=== PATIENT | female | born 1950 | race Caucasian/White ===

== ENCOUNTER 2024-01-11 06:24 | Day surgery (SDC) | payer MEDICARE, SELFPAY ==
[2024-01-11 06:46] VITALS: BP 120/63; PULSE 71; RESP 16; TEMP 36.7; O2SAT 97
[2024-01-11] MEDS: Lidocaine 1% Pres-Free W/EPI 1/200,000 10 ML VIAL (07:25)
[2024-01-11] MEDS: Erythromycin Ophth Oint 1 GM TUBE OU (07:30)
[2024-01-11] MEDS: Povidone-Iodine Ophth 30 ML BTL (07:32)
--- NOTE | 2024-01-11 07:38 | SKI_PTH ---
PATIENT: Stephanie Nunez LOC: [facility] U#:[id number] AGE/SX: 73/F ROOM: RE01/11/[address]: Noel De Oliveira : 1950 BED: DIS: 01/11/2024 SPEC #: [id number] RECD: 01/11/24 11:56 STATUS: ZBIGNIEW REVivian #: [id number] STEPAN: 01/11/24 07:[address]: Noel De Oliveira DEPT: Surgical Specimen RECD BY: Medina Child ENTERED: 01/11/24 11:56 SP TYPE: KURTIS COLIN DR: Keyur Onofre Tissues: 1 - SKIN BIOPSY(SHAVE/PUNCH) Procedures: SKIN LEVEL 4 Comments: [id number]
[2024-01-11 07:45] VITALS: BP 130/71; PULSE 57; RESP 18; TEMP 36; O2SAT 95
--- NOTE | 2024-01-11 07:45 | W.PM.OP ---
Date of service: 01/11/24 Time of Service: 07:45 Operative Note Operative Note DATE OF PROCEDURE: 01/11/24 PRE-OP DIAGNOSIS: Recurrent x3 right upper eyelid nodule POST-OP DIAGNOSIS: same PROCEDURE: Excision of recurrent right upper eyelid nodule SURGEON: Noel De Oliveira ANESTHESIA TYPE: Local By Surgeon Refer to Anesthesia Record ESTIMATED BLOOD LOSS: 0 PATHOLOGY: other Patient was transported to: same day Patient's condition: stable Indications: Recurrent x 3 right upper eyelid nodule Findings: 2 mm x 3 mm solid nodule at the lid margin posterior to the lash line Procedure Description: The preoperative area, the correct surgical eye was confirmed and marked with a surgical marker. 2 drops of tetracaine were applied to the right thigh. 1 cc of lidocaine 1% with epinephrine was injected in the temporal right upper lid surrounding the lesion at the lid margin. This was allowed to take effect for 10 minutes and the patient was brought to the operating room where the upper eyelid was prepped with ophthalmic Betadine. A chalazion clamp was applied to the right upper lid and a #15 blade was used to delineate the margins of the lesion with a 1 mm margin. The lesion measured approximately 2 mm in vertical dimension, 3 mm in horizontal dimension, located on the lid margin, posterior to the lash line. Erica scissors were then used to remove the lesion in its entirety. Pressure was applied until the very minimal bleeding stopped. Erythromycin ophthalmic ointment was then applied to the defect. The defect measured 4 mm in horizontal dimension, 3 mm in anterior posterior dimension. The specimen was placed in formalin and sent to pathology. The patient was returned to same day surgery in stable condition
--- NOTE | 2024-01-11 08:12 | W.PM.DSUDISC ---
Date of service: 01/11/24 Time of Service: 08:12 Discharge Plan Disposition Patient Disposition: Home Condition: Good Discharge Details Attending Provider: Noel De Oliveira Primary Care Provider: Keyur Onofre [place] Meds and New Rx's Prescriptions: No Action atorvastatin 80 mg tablet 80 mg PO DAILY Patient Comments: TAKE 1 TABLET BY MOUTH ONCE DAILY esomeprazole magnesium 40 mg capsule,delayed release(DR/EC) 40 mg PO DAILY Patient Comments: TAKE 1 CAPSULE BY MOUTH ONCE DAILY venlafaxine 37.5 mg capsule,extended release 24hr 37.5 mg PO DAILY Patient Comments: TAKE 1 CAPSULE BY MOUTH ONCE DAILY cholecalciferol (vitamin D3) [Vitamin D3] 25 mcg (1,000 unit) tablet 25 mcg PO DAILY Discharge Instructions Additional Instructions: Apply erythromycin ointment with a cotton tip applicator to right upper lid TID x 7 days. Discharge Orders Discharge Orders: Discharge Order (Routine); Ordered 01/11/24 Ordered By: Noel De Oliveira
== END 2024-01-11 08:08 | disposition home or self-care (01) ==
PROVIDERS: PCP Family Medicine; Visit Provider Ophthalmology
PROC: (CPT 67840; principal; 2024-01-11 07:30)
DX: D23.39 Other benign neoplasm of skin of other parts of face (principal)
CPT/HCPCS: 67840; 00123; 88305; J2004